=== PATIENT | female | born 1955 | race American Indian/Alaskan Native ===

== ENCOUNTER 2021-06-24 11:04 | Emergency (ER) | payer SELFPAY ==
[2021-06-24 11:15] VITALS: BP 171/84
--- NOTE | 2021-06-24 12:00 | Emergency Department Report ---
ED General Adult HPI - General Chief complaint: Upper Respiratory Infection Stated complaint: pain in ear and head throat pain Time Seen by Provider: 06/24/21 11:16 Source: patient Mode of arrival: Ambulatory Limitations: No Limitations - History of Present Illness Initial comments: 65-year-old -H[place]ian female patient with history of diabetes presents with complaints of left-sided ear and facial pain x2 weeks worsening over the past few days. She denies any fever/chills/sweats. She states she is using Flonase without improvement in her symptoms. No changes in hearing or drainage from the ear per patient, throat pain, cough, chest pain, or nausea/vomiting. She also denies any loss of taste or smell. She rates her current pain is 8/10 in severity. - Related Data Previous Rx's Medication Instructions Recorded Last Taken Type Amoxicillin/Potassium Clav 1 each PO BID 7 Days #14 tablet 06/24/21 Unknown Rx [Augmentin 875-125 Tablet] Naproxen 500 mg PO BID PRN #14 tablet 06/24/21 Unknown Rx ED Review of Systems ROS: Stated complaint: pain in ear and head throat pain Other details as noted in HPI Constitutional: denies: chills, fever, malaise ENT: ear pain. denies: throat pain, dental pain Respiratory: denies: cough, shortness of breath Cardiovascular: denies: chest pain Hematological/Lymphatic: denies: swollen glands ED Past Medical Hx - Past Medical History Previous Medical History?: No - Surgical History Past Surgical History?: No - Medications Home Medications: Home Medications Medication Instructions Recorded Confirmed Last Taken Type Amoxicillin/Potassium Clav 1 each PO BID 7 Days #14 tablet 06/24/21 Unknown Rx [Augmentin 875-125 Tablet] Naproxen 500 mg PO BID PRN #14 tablet 06/24/21 Unknown Rx ED Physical Exam - General Limitations: No Limitations General appearance: alert, in no apparent distress - Head Head exam: Present: atraumatic, normocephalic - Eye Eye exam: Present: normal appearance - ENT ENT exam: Present: normal orophraynx, TM's normal bilaterally, other (Significant tenderness to palpation noted to the left maxillary and left ethmoid sinuses without overlying swelling or erythema; bilateral turbinate erythema and swelling noted) - Neck Neck exam: Present: normal inspection, full ROM - Respiratory Respiratory exam: Absent: respiratory distress - Cardiovascular Cardiovascular Exam: Present: regular rate - Neurological Exam Neurological exam: Present: alert, oriented X3 - Psychiatric Psychiatric exam: Present: normal affect, normal mood - Skin Skin exam: Present: warm, dry, intact, normal color. Absent: rash ED Course Vital Signs 06/24/21 11:12 Temperature 98.4 F Pulse Rate 99 H Respiratory 18 Rate Blood Pressure 171/84 O2 Sat by Pulse 100 Oximetry ED Medical Decision Making - Medical Decision Making 65-year-old -H[place]ian female patient with history of diabetes presents with complaints of left-sided ear and facial pain x2 weeks worsening over the past few days. She denies any fever/chills/sweats. She states she is using Flonase without improvement in her symptoms. No changes in hearing or drainage from the ear per patient, throat pain, cough, chest pain, or nausea/vomiting. She also denies any loss of taste or smell. She rates her current pain is 8/10 in severity. Patient has tenderness to palpation of the maxillary and ethmoid sinuses on exam. Given duration of symptoms with worsening of her symptoms over the past few days, will treat for acute bacterial sinusitis with Augmentin. Recommend follow-up with PCP in 3 to 5 days. Discussed in detail signs and symptoms that should prompt immediate return to the ED with patient who verbalizes understanding. She is otherwise well-appearing, her vitals are within normal limits, she is stable for discharge home. Critical care attestation.: If time is entered above; I have spent that time in minutes in the direct care of this critically ill patient, excluding procedure time. ED Disposition Clinical Impression: Acute bacterial sinusitis Disposition: HOME / SELF CARE / HOMELESS Is pt being admited?: No Condition: Stable Instructions: Sinusitis, Adult, [id number] Prescriptions: Amoxicillin/Potassium Clav [Augmentin 875-125 Tablet] 1 each PO BID 7 Days #14 tablet Naproxen 500 mg PO BID PRN #14 tablet PRN Reason: pain Referrals: PRIMARY CARE, [Referring] - 3-5 Days
== END 2021-06-24 14:26 | disposition home or self-care (01) ==
LOC: ED 11:04
DX: J01.90 Acute sinusitis, unspecified (principal); B96.89 Other specified bacterial agents as the cause of diseases classified elsewhere; H92.02 Otalgia, left ear
CPT/HCPCS: 99281

== ENCOUNTER 2021-09-04 07:23 | Emergency (ER) | payer MEDICAID ==
[2021-09-04 08:39] VITALS: BP 182/89
[2021-09-04] MEDS ORDERED: SUMAtriptan SUCCINATE 6 MG/0.5 ML INJ SUB-Q ONE (10:43)
[2021-09-04] MEDS ORDERED: SODIUM CHLORIDE 0.9% 1000 ML 1,000 ML IV ONE (10:43)
[2021-09-04] MEDS ORDERED: METOCLOPRAMIDE 10 MG/2 ML INJ IV ONE (10:43)
--- NOTE | 2021-09-04 10:44 | Emergency Department Report ---
ED Headache HPI - General Chief Complaint: Headache Stated Complaint: FEET PAIN,HEADACHE Time Seen by Provider: 09/04/21 10:08 Source: patient Exam Limitations: no limitations - History of Present Illness Initial Comments: 65-year-old -Romanian female with a history of hypertension, diabetes and hyperlipidemia presents to the ER today with complaints of a headache. Patient reports a global headache including pain behind both of her eyes for the past couple days. He states has been a constant pain. She states that feels like when she had a sinus infection in the past but also she has a history of migraines and feels similar to migraines. Patient states she has been having rhinorrhea and nasal congestion and mild cough. She denies any ill contacts or recent travel. She has received her COVID-19 vaccine. Patient states that she used to suffer from migraines long time ago, but eventually got better and stopped needing injections for them. She has not had a migraine in a while up until her headache started couple days ago. She denies any head injury. She states that nothing has been helping including [id number] medications. She reports photophobia and nausea. She denies any fever, chills, neck pain, focal weakness, paresthesias, or any additional symptoms at this time. Quality: moderate Head Injury Location: global Allergies/Adverse Reactions: Allergies lisinopril Allergy (Verified 09/04/21 08:39) Unknown Home Medications: Ambulatory Orders Amoxicillin/Potassium Clav [Augmentin 875-125 Tablet] 1 each PO BID 7 Days #14 tablet 06/24/21 Naproxen 500 mg PO BID PRN #14 tablet 06/24/21 Butalb/Acetamin/Caff 50-325-40 [Fioricet 50-325-40] 1 tab PO Q6HR PRN #12 tab 09/04/21 Loratadine [Claritin] 10 mg PO DAILY #30 tab 09/04/21 Mometasone Furoate [Nasonex] 1 spray NS Q12HR #1 bottle 09/04/21 Ondansetron [Zofran Odt] 4 mg PO Q8HR #15 tab.rapdis 09/04/21 ED Review of Systems ROS: Stated complaint: FEET PAIN,HEADACHE Other details as noted in HPI Constitutional: denies: chills, fever Eyes: denies: eye pain, eye discharge, vision change ENT: congestion, other (rhinorrhea ). denies: ear pain, throat pain, dental pain, hearing loss, epistaxis Respiratory: cough. denies: shortness of breath, SOB with exertion, SOB at rest, wheezing Cardiovascular: denies: chest pain, palpitations, dyspnea on exertion, edema, syncope, paroxysmal nocturnal dyspnea Gastrointestinal: denies: abdominal pain, nausea, diarrhea, constipation, hematemesis, melena, hematochezia Genitourinary: denies: urgency, dysuria, frequency, hematuria, discharge, abnormal menses, dyspareunia Musculoskeletal: denies: back pain, joint swelling, arthralgia Skin: denies: rash, lesions, change in color, change in hair/nails, pruritus Neurological: headache. denies: numbness, paresthesias, confusion, abnormal gait, vertigo, other Psychiatric: denies: anxiety, depression, auditory hallucinations, visual hallucinations, homicidal thoughts, suicidal thoughts Hematological/Lymphatic: denies: easy bleeding, easy bruising ED Past Medical Hx - Past Medical History Previous Medical History?: Yes Hx Hypertension: Yes Hx Diabetes: Yes - Surgical History Past Surgical History?: No - Medications Home Medications: Home Medications Medication Instructions Recorded Confirmed Last Taken Type Amoxicillin/Potassium Clav 1 each PO BID 7 Days #14 tablet 06/24/21 Unknown Rx [Augmentin 875-125 Tablet] Naproxen 500 mg PO BID PRN #14 tablet 06/24/21 Unknown Rx Butalb/Acetamin/Caff 50-325-40 1 tab PO Q6HR PRN #12 tab 09/04/21 Unknown Rx [Fioricet 50-325-40] Loratadine [Claritin] 10 mg PO DAILY #30 tab 09/04/21 Unknown Rx Mometasone Furoate [Nasonex] 1 spray NS Q12HR #1 bottle 09/04/21 Unknown Rx Ondansetron [Zofran Odt] 4 mg PO Q8HR #15 tab.rapdis 09/04/21 Unknown Rx ED Physical Exam - General Limitations: No Limitations General appearance: alert, in no apparent distress - Head Head exam: Present: atraumatic, normocephalic, normal inspection - Eye Eye exam: Present: normal appearance, PERRL, EOMI - ENT ENT exam: Present: normal exam, mucous membranes dry, TM's normal bilaterally, normal external ear exam, other (+ maxillary and frontal sinus ttp ) - Neck Neck exam: Present: normal inspection, full ROM. Absent: meningismus - Respiratory Respiratory exam: Present: normal lung sounds bilaterally. Absent: respiratory distress, wheezes, rales, rhonchi - Cardiovascular Cardiovascular Exam: Present: regular rate, normal rhythm, normal heart sounds - GI/Abdominal GI/Abdominal exam: Present: soft. Absent: distended, tenderness, guarding, rebound - Neurological Exam Neurological exam: Present: alert, oriented X3, CN II-XII intact, normal gait - Psychiatric Psychiatric exam: Present: normal affect, normal mood - Skin Skin exam: Present: intact ED Course Vital Signs 09/04/21 08:35 Temperature 98.3 F Pulse Rate 101 H Respiratory 16 Rate Blood Pressure 182/89 [Left] O2 Sat by Pulse 100 Oximetry ED Medical Decision Making - Radiology Data Radiology results: report reviewed Patient: AVI MATTHEWS MR#: [id number] : 1955 Acct:[id number] Age/Sex: 65 / F ADM Date: 09/04/21 Loc: ED Attending Dr: Ordering Physician: DEBORAH LOPEZ Date of Service: 09/04/21 Procedure(s): CT head/brain wo con Accession Number(s): [id number] cc: DEBORAH LOPEZ CT BRAIN: 09/04/2021 INDICATION / CLINICAL INFORMATION: severe NUNN. COMPARISON: None available. FINDINGS: BRAIN/INTRACRANIAL STRUCTURES: Unenhanced CT images of the brain demonstrate no evidence of acute abnormality. Ventricles and sulci are within normal limits of size and shape for a patient of this age. There is no evidence of hemorrhage or mass. There are no abnormal extra-axial fluid collections. Atherosclerotic vascular calcifications are present in the distal internal carotid arteries and vertebral arteries. EXTRACRANIAL STRUCTURES: Unremarkable. IMPRESSION: No acute abnormality. All CT scans at this location are performed using dose reduction to ALARA by means of automated exposure control. Signer Name: Estuardo Claudio MD Signed: 09/04/2021 11:23 AM Workstation Name: [id number] Transcribed By: AO Dictated By: Estuardo Claudio MD Electronically Authenticated By: Estuardo Claudio MD Signed Date/Time: 09/04/21 112 DD/ 1123 TD/TT: - Medical Decision Making CT head shows nothing acute. Fingerstick blood sugar was 242. Patient reports feeling better after IV fluids and meds. She is actually anxi ous and ready to go as she has to go home and take care of her current children. Patient currently awake alert oriented x3. She is neurologically intact with a normal gait. She is mentally stable. She is not toxic, and she is not ill- appearing. She has no evidence of meningeal signs on exam, history and physical today does not suggest acute meningitis, TIA/CVA, temporal arteritis, sepsis or any other significant pathology warranting additional testing, continued ED treatment, admission, or specialist consult at this time. Discussed CT results with patient. Symptoms could be related to her migraines and also viral sinusitis. Discussed suspected diagnosis and treatment plan with patient. She expressed onset of all instructions and agree with plan. Patient was stable at time of discharge Critical care attestation.: If time is entered above; I have spent that time in minutes in the direct care of this critically ill patient, excluding procedure time. ED Disposition Clinical Impression: Migraine, Viral sinusitis Disposition: HOME / SELF CARE / HOMELESS Is pt being admited?: No Does the pt Need Aspirin: No Condition: Stable Instructions: Migraine Headache, [id number], Sinusitis, Adult, [id number] Additional Instructions: I recommend taking the Fioricet and the Zofran as prescribed to help your headache. Use the Nasonex, and take the Claritin to help your URI symptoms. Follow-up with your primary care doctor this week. Return to the ER if your symptoms worsens in any way Prescriptions: Loratadine [Claritin] 10 mg PO DAILY #30 tab Butalb/Acetamin/Caff 50-325-40 [Fioricet 50-325-40] 1 tab PO Q6HR PRN #12 tab PRN Reason: Headache Mometasone Furoate [Nasonex] 1 spray NS Q12HR #1 bottle Ondansetron [Zofran Odt] 4 mg PO Q8HR #15 tab.nii Referrals: HARMONY FIERRO SR, MD [Primary Care Provider] - 3-5 Days Time of Disposition: 12:59
--- NOTE | 2021-09-04 11:28 | Cat Scan Report ---
CT BRAIN: 09/04/2021 INDICATION / CLINICAL INFORMATION: severe NUNN. COMPARISON: None available. FINDINGS: BRAIN/INTRACRANIAL STRUCTURES: Unenhanced CT images of the brain demonstrate no evidence of acute abn ormality. Ventricles and sulci are within normal limits of size and shape for a patient of this age. There is no evidence of hemorrhage or mass. There are no abnormal extra-axial fluid collections. Atherosclerotic vascular calcifications are present in the distal internal carotid arteries and verte bral arteries. EXTRACRANIAL STRUCTURES: Unremarkable. IMPRESSION: No acute abnormality. All CT scans at this location are performed using dose reduction to ALARA by means of automated expos ure control. Signer Name: Estuardo Claudio MD Signed: 09/04/2021 11:23 AM Workstation Name: [id number]
== END 2021-09-04 13:08 | disposition home or self-care (01) ==
LOC: ED 07:23
DX: G43.909 Migraine, unspecified, not intractable, without status migrainosus (principal); J32.8 Other chronic sinusitis; I10 Essential (primary) hypertension; E11.9 Type 2 diabetes mellitus without complications
CPT/HCPCS: 70450; 82962; 96361; 96372; 96374; 99284; J2765; J7030; 99283; J3490; Q0162; J3030

== ENCOUNTER 2021-09-20 20:18 | Emergency (ER) | payer MEDICAID ==
[2021-09-20] MEDS ORDERED: diphenhydrAMINE 25 MG CAP PO ONE (23:54)
[2021-09-20] MEDS ORDERED: cephALEXin 500 MG CAP PO ONE (23:54)
[2021-09-20] MEDS ORDERED: FAMOTIDINE 20 MG TAB PO ONE (23:54)
--- NOTE | 2021-09-21 00:02 | Emergency Department Report ---
- General Chief complaint: Skin Rash Stated complaint: FACE RASH, SWOLLEN THROAT X 2 DAYS Time Seen by Provider: 09/20/21 23:54 Source: patient Mode of arrival: Ambulatory Limitations: No Limitations - History of Present Illness Initial comments: Patient is a 65-year-old female presents emergency room with complaints of a possible allergic reaction that began a couple days ago. She states that it first began with a rash to the face that was itching and burning. She states yesterday then she noticed some swelling underneath the chin. She states that she is also been having crusting and drainage from the chin. She denies any difficulty swallowing, difficulty breathing, fever, vomiting. She denies any new soaps, lotions, detergents, medications, anything new she was putting on the face, any recent antibiotics. Allergy to lisinopril. - Related Data Previous Rx's Medication Instructions Recorded Last Taken Type Amoxicillin/Potassium Clav 1 each PO BID 7 Days #14 tablet 06/24/21 Unknown Rx [Augmentin 875-125 Tablet] Naproxen 500 mg PO BID PRN #14 tablet 06/24/21 Unknown Rx Butalb/Acetamin/Caff 50-325-40 1 tab PO Q6HR PRN #12 tab 09/04/21 Unknown Rx [Fioricet 50-325-40] Loratadine [Claritin] 10 mg PO DAILY #30 tab 09/04/21 Unknown Rx Mometasone Furoate [Nasonex] 1 spray NS Q12HR #1 bottle 09/04/21 Unknown Rx Ondansetron [Zofran Odt] 4 mg PO Q8HR #15 tab.rapdis 09/04/21 Unknown Rx Famotidine [Pepcid] 40 mg PO QHS #10 tab 09/21/21 Unknown Rx Loratadine 10 mg PO DAILY #10 tab 09/21/21 Unknown Rx Mupirocin [Bactroban 2% OINT] 1 applic TP TID #1 tube 09/21/21 Unknown Rx cephALEXin [Keflex] 500 mg PO QID 7 Days #28 cap 09/21/21 Unknown Rx diphenhydrAMINE [Benadryl CAP] 25 mg PO Q8HR PRN #20 capsule 09/21/21 Unknown Rx Allergies Allergy/AdvReac Type Severity Reaction Status Date / Time lisinopril Allergy Unknown Verified 09/04/21 08:39 Abscess Boil HPI - HPI Chief Complaint: Skin Rash Stated Complaint: FACE RASH, SWOLLEN THROAT X 2 DAYS Time Seen by Provider: 09/20/21 23:54 Home Medications: Previous Rx's Medication Instructions Recorded Last Taken Type Amoxicillin/Potassium Clav 1 each PO BID 7 Days #14 tablet 06/24/21 Unknown Rx [Augmentin 875-125 Tablet] Naproxen 500 mg PO BID PRN #14 tablet 06/24/21 Unknown Rx Butalb/Acetamin/Caff 50-325-40 1 tab PO Q6HR PRN #12 tab 09/04/21 Unknown Rx [Fioricet 50-325-40] Loratadine [Claritin] 10 mg PO DAILY #30 tab 09/04/21 Unknown Rx Mometasone Furoate [Nasonex] 1 spray NS Q12HR #1 bottle 09/04/21 Unknown Rx Ondansetron [Zofran Odt] 4 mg PO Q8HR #15 tab.rapdis 09/04/21 Unknown Rx Famotidine [Pepcid] 40 mg PO QHS #10 tab 09/21/21 Unknown Rx Loratadine 10 mg PO DAILY #10 tab 09/21/21 Unknown Rx Mupirocin [Bactroban 2% OINT] 1 applic TP TID #1 tube 09/21/21 Unknown Rx cephALEXin [Keflex] 500 mg PO QID 7 Days #28 cap 09/21/21 Unknown Rx diphenhydrAMINE [Benadryl CAP] 25 mg PO Q8HR PRN #20 capsule 09/21/21 Unknown Rx Allergies/Adverse Reactions: Allergies Allergy/AdvReac Type Severity Reaction Status Date / Time lisinopril Allergy Unknown Verified 09/04/21 08:39 ED Review of Systems ROS: Stated complaint: FACE RASH, SWOLLEN THROAT X 2 DAYS Other details as noted in HPI Comment: All other systems reviewed and negative ED Past Medical Hx - Past Medical History Previous Medical History?: Yes Hx Hypertension: Yes Hx Diabetes: Yes - Surgical History Past Surgical History?: No - Medications Home Medications: Home Medications Medication Instructions Recorded Confirmed Last Taken Type Amoxicillin/Potassium Clav 1 each PO BID 7 Days #14 tablet 06/24/21 Unknown Rx [Augmentin 875-125 Tablet] Naproxen 500 mg PO BID PRN #14 tablet 06/24/21 Unknown Rx Butalb/Acetamin/Caff 50-325-40 1 tab PO Q6HR PRN #12 tab 09/04/21 Unknown Rx [Fioricet 50-325-40] Loratadine [Claritin] 10 mg PO DAILY #30 tab 09/04/21 Unknown Rx Mometasone Furoate [Nasonex] 1 spray NS Q12HR #1 bottle 09/04/21 Unknown Rx Ondansetron [Zofran Odt] 4 mg PO Q8HR #15 tab.rapdis 09/04/21 Unknown Rx Famotidine [Pepcid] 40 mg PO QHS #10 tab 09/21/21 Unknown Rx Loratadine 10 mg PO DAILY #10 tab 09/21/21 Unknown Rx Mupirocin [Bactroban 2% OINT] 1 applic TP TID #1 tube 09/21/21 Unknown Rx cephALEXin [Keflex] 500 mg PO QID 7 Days #28 cap 09/21/21 Unknown Rx diphenhydrAMINE [Benadryl CAP] 25 mg PO Q8HR PRN #20 capsule 09/21/21 Unknown Rx ED Physical Exam - General Limitations: No Limitations General appearance: alert, in no apparent distress - Head Head exam: Present: other (urticaria present to the face, mild edema and erythema, there is honey colored crusting to the chin) - ENT ENT exam: Present: normal orophraynx, mucous membranes moist - Respiratory Respiratory exam: Absent: respiratory distress, accessory muscle use - Neurological Exam Neurological exam: Present: alert, oriented X3 - Psychiatric Psychiatric exam: Present: normal affect, normal mood - Skin Skin exam: Present: warm ED Course Vital Signs 09/20/21 09/21/21 21:28 00:40 Temperature 98.2 F 98.3 F Pulse Rate 109 H 86 Respiratory 18 17 Rate Blood Pressure 173/93 Blood Pressure 174/76 [Right] O2 Sat by Pulse 95 99 Oximetry ED Medical Decision Making - Lab Data Vital Signs 09/20/21 09/21/21 21:28 00:40 Temperature 98.2 F 98.3 F Pulse Rate 109 H 86 Respiratory 18 17 Rate Blood Pressure 173/93 Blood Pressure 174/76 [Right] O2 Sat by Pulse 95 99 Oximetry - Medical Decision Making Patient is a 65-year-old female presents emergency room with complaints of a po ssible allergic reaction that began a couple days ago. She states that it first began with a rash to the face that was itching and burning. She states yesterday then she noticed some swelling underneath the chin. She states that she is also been having crusting and drainage from the chin. She denies any difficulty swallowing, difficulty breathing, fever, vomiting. She denies any new soaps, lotions, detergents, medications, anything new she was putting on the face, any recent antibiotics. Allergy to lisinopril. Initial vitals with elevated heart rate which improved upon repeat to normal. On exam:urticaria present to the face, mild edema and erythema, there is honey colored crusting to the chin. No signs of anaphylaxis or airway compromise. Examination appears consistent with allergic reaction versus urticaria and now appears to have secondarily impetigo. Patient states that she has a history of diabetes and reports that it is not very well controlled and states that her sugars usually run in the 200s. Given her history will avoid steroids. Patient given prescription for medications. Advised patient Please use medication as prescribed. Follow-up with your primary care doctor for reexamination. Return to emergency room for any new or worse symptoms. Critical care attestation.: If time is entered above; I have spent that time in minutes in the direct care of this critically ill patient, excluding procedure time. ED Disposition Clinical Impression: Impetigo Allergic reaction Qualifiers: Encounter type: initial encounter Qualified Code(s): T78.40XA - Allergy, unspecified, initial encounter Disposition: HOME / SELF CARE / HOMELESS Is pt being admited?: No Does the pt Need Aspirin: No Condition: Stable Instructions: Allergies, Adult, Dqjy-ne-Xljy, Impetigo, Adult Additional Instructions: Please use medication as prescribed. Follow-up with your primary care doctor for reexamination. Return to emergency room for any new or worse symptoms. Prescriptions: Famotidine [Pepcid] 40 mg PO QHS #10 tab Mupirocin [Bactroban 2% OINT] 1 applic TP TID #1 tube diphenhydrAMINE [Benadryl CAP] 25 mg PO Q8HR PRN #20 capsule PRN Reason: itching/rash cephALEXin [Keflex] 500 mg PO QID 7 Days #28 cap Loratadine 10 mg PO DAILY #10 tab Referrals: your, primary care doctor [Other] - 2-3 Days Time of Disposition: 00:00 Print Language: TAJIK
[2021-09-21 00:41] VITALS: BP 174/76
== END 2021-09-21 00:40 | disposition home or self-care (01) ==
LOC: ED 20:18
DX: L01.00 Impetigo, unspecified (principal); T78.40XA Allergy, unspecified, initial encounter; X58.XXXA Exposure to other specified factors, initial encounter; I10 Essential (primary) hypertension; E11.9 Type 2 diabetes mellitus without complications; Z91.09 Other allergy status, other than to drugs and biological substances
CPT/HCPCS: 99282

== ENCOUNTER 2021-10-24 07:15 | Emergency (ER) | payer MEDICAID ==
--- NOTE | 2021-10-24 08:16 | Emergency Department Report ---
ED Headache HPI - General Chief Complaint: Headache Stated Complaint: HEADACHE Time Seen by Provider: 10/24/21 08:16 Source: patient, old records Exam Limitations: no limitations - History of Present Illness Initial Comments: 65-year-old female with a past medical history of diabetes, hypertension, and migraine presents to the ER today with complaints of a headache. Patient states that she has had a diffuse headache for the past 2 weeks. She states there is an intermittent headache. She reports associated intermittent nausea but no vomiting. She denies any recent head injury. She states that the headache is worse with light. She has been taking Excedrin migraine without much relief of the headache. Patient states that the headache feels similar to her typical migraines. She also reports that she has been under lots of stress lately because she is moving. She denies any neck pain, fever, chills, speech changes, vision changes, focal deficits, chest pain, shortness of breath or any additional symptoms. Patient blood pressure was noted to be significantly elevated at triage. She states that her primary care doctor recently switch her to HCTZ 25 mg which she has been taking every day and she did take a dose this morning. She states that she had routine blood work with her primary care doctor earlier this month and it was normal. Patient was also seen here back in August 2021 for similar headache and had a negative head CT at the time. Timing/Duration: other (2 weeks ) Quality: moderate, severe Head Injury Location: global Allergies/Adverse Reactions: Allergies lisinopril Allergy (Verified 09/04/21 08:39) Unknown Home Medications: Ambulatory Orders Butalb/Acetamin/Caff 50-325-40 [Fioricet 50-325-40] 1 tab PO Q6HR PRN #12 tab 10/24/21 Ondansetron [Zofran Odt] 4 mg PO Q8HR #15 tab.rapdis 10/24/21 amLODIPine 5 mg PO DAILY #30 tab 10/24/21 ED Review of Systems ROS: Stated complaint: HEADACHE Other details as noted in HPI Comment: All other systems reviewed and negative Constitutional: denies: chills, fever Eyes: denies: eye pain, eye discharge, vision change ENT: denies: ear pain, throat pain Respiratory: denies: cough, shortness of breath, wheezing Cardiovascular: denies: chest pain, palpitations Gastrointestinal: nausea. denies: abdominal pain, diarrhea, constipation, hematemesis, melena, hematochezia Genitourinary: denies: urgency, dysuria, frequency, hematuria, discharge, abnormal menses, dyspareunia Musculoskeletal: denies: joint swelling, arthralgia, myalgia Skin: denies: rash, lesions, change in color, change in hair/nails, pruritus Neurological: headache. denies: weakness, numbness, paresthesias, confusion, abnormal gait, vertigo Psychiatric: denies: anxiety, depression, auditory hallucinations, visual hallucinations, homicidal thoughts, suicidal thoughts Hematological/Lymphatic: denies: easy bleeding, easy bruising, swollen glands ED Past Medical Hx - Past Medical History Previous Medical History?: Yes Hx Hypertension: Yes Hx Diabetes: Yes - Surgical History Past Surgical History?: No - Medications Home Medications: Home Medications Medication Instructions Recorded Confirmed Last Taken Type Butalb/Acetamin/Caff 50-325-40 1 tab PO Q6HR PRN #12 tab 10/24/21 Unknown Rx [Fioricet 50-325-40] Ondansetron [Zofran Odt] 4 mg PO Q8HR #15 tab.rapdis 10/24/21 Unknown Rx amLODIPine 5 mg PO DAILY #30 tab 10/24/21 Unknown Rx ED Physical Exam - General Limitations: No Limitations General appearance: alert, in distress (Mild secondary to pain) - Head Head exam: Present: atraumatic, normocephalic, normal inspection - Eye Eye exam: Present: normal appearance, PERRL, EOMI Pupils: Present: normal accommodation - Neck Neck exam: Present: normal inspection, full ROM. Absent: meningismus - Respiratory Respiratory exam: Present: normal lung sounds bilaterally. Absent: respiratory distress, wheezes, rales, rhonchi, stridor - Cardiovascular Cardiovascular Exam: Present: regular rate, normal rhythm, normal heart sounds - Back Exam Back exam: Present: full ROM - Neurological Exam Neurological exam: Present: alert, oriented X3, CN II-XII intact, normal gait. Absent: motor sensory deficit - Psychiatric Psychiatric exam: Present: normal affect, normal mood - Skin Skin exam: Present: intact ED Course Vital Signs 10/24/21 10/24/21 08:01 09:31 Temperature 98 F Pulse Rate 103 H 77 Respiratory 16 Rate Blood Pressure 228/112 [Left] Blood Pressure 154/74 [Right] O2 Sat by Pulse 99 Oximetry ED Medical Decision Making - Medical Decision Making Patient NUNN better after meds. BP improving after PO clonidine. Reevaluation shows the patient is neurologically intact with a normal gait. She is awake alert and oriented x3. No meningeal signs on exam.The history, exam, and the patient's current condition does not suggest meningitis, stroke, sepsis, subarachnoid hemorrhage, intracranial bleeding, encephalitis, temporal arteritis or other significant pathology to warrant further testing, continued ED treatment, admission, neurological consultation or other specialist evaluation at this point. Patient reports that she was on amlodipine in the past and that seemed to control her blood pressure better until restarted on a low-dose amlodipine but she is to continue the HCTZ and follow-up with her primary care doctor. She also be given medication for headache. Patient understands to return to the ER if worse. Patient stable at time of discharge. Critical care attestation.: If time is entered above; I have spent that time in minutes in the direct care of this critically ill patient, excluding procedure time. ED Disposition Clinical Impression: Migraine headache, Uncontrolled hypertension Disposition: HOME / SELF CARE / HOMELESS Is pt being admited?: No Does the pt Need Aspirin: No Condition: Stable Instructions: Migraine Headache, [id number], Managing Your Hypertension, Hyp ertension, Adult, Hypertension (ED) Additional Instructions: I recommend continuing the HCTZ and start the amlodipine. Take the fiorcet and zofran for headache/nausea. Follow-up with your primary care doctor, or you can follow-up with one of the primary care doctor listed on your discharge instructions. Return to the ER if your symptoms changes or worsens in any way. Prescriptions: amLODIPine 5 mg PO DAILY #30 tab Butalb/Acetamin/Caff 50-325-40 [Fioricet 50-325-40] 1 tab PO Q6HR PRN #12 tab PRN Reason: Headache Ondansetron [Zofran Odt] 4 mg PO Q8HR #15 tab.rapdis Referrals: ERNST PELAEZ MD [Primary Care Provider] - 3-5 Days NGHIA STANTON MD [Staff Physician] - 3-5 Days [facility] [Provider Group] - 3-5 Days Time of Disposition: :32
[2021-10-24] MEDS ORDERED: KETOROLAC 30 MG/1 ML INJ IM ONE (08:17)
[2021-10-24] MEDS ORDERED: METOCLOPRAMIDE 10 MG TAB PO ONE (08:17)
[2021-10-24] MEDS ORDERED: BUTALB/ACETAMINOPHEN/CAFFEINE TAB PO ONE (08:17)
[2021-10-24] MEDS ORDERED: cloNIDine 0.1 MG TAB PO ONE (08:19)
[2021-10-24 09:32] VITALS: BP 154/74
== END 2021-10-24 09:45 | disposition home or self-care (01) ==
LOC: ED 07:15
DX: G43.909 Migraine, unspecified, not intractable, without status migrainosus (principal); I10 Essential (primary) hypertension
CPT/HCPCS: 96372; 99282; J1885

== ENCOUNTER 2021-10-28 15:21 | Emergency (ER) | payer MEDICAID ==
[2021-10-28] MEDS ORDERED: ACETAMINOPHEN 325 MG TAB PO ONE (17:49)
[2021-10-28] MEDS ORDERED: diphenhydrAMINE 50 MG/ML VIAL IV ONE (17:49)
[2021-10-28] MEDS ORDERED: MORPHINE 4 MG/1 ML INJ IV ONE (17:49)
[2021-10-28] MEDS ORDERED: METOCLOPRAMIDE 10 MG/2 ML INJ IV ONE (17:49)
[2021-10-28] MEDS ORDERED: dexAMETHasone 4 MG/ML VIAL IV ONE (17:49)
[2021-10-28] MEDS ORDERED: amLODIPine 5 MG TAB PO ONE (17:54)
--- NOTE | 2021-10-28 17:54 | Emergency Department Report ---
ED Headache HPI - General Chief Complaint: Headache Stated Complaint: HYPERTENSION Time Seen by Provider: 10/28/21 17:45 Source: patient, old records Exam Limitations: no limitations - History of Present Illness Initial Comments: Chief complaint: Headache HPI: This is a 65-year-old female with history of hypertension, diabetes mellitus, migraine headache, tobacco dependence who presents with global headache for 2 weeks. Patient has global throbbing headache with nausea, vomiting, photophobia. Patient had CT scan obtained here at this hospital September 04, 2021, no acute abnormality according to electronic medical record. Patient was evaluated for headache on September 04 in October 24. She also states that she has been compliant with her antihypertensive medication. Headache is typical of previous migraine headaches. Timing/Duration: waxing and waning, other (2 weeks) Quality: severe Head Injury Location: global Recent Head Trauma: chronic headaches Modifying Factors: improves with: exposure to light Associated Symptoms: nausea/vomiting Allergies/Adverse Reactions: Allergies lisinopril Allergy (Verified 10/28/21 16:08) Unknown Home Medications: Ambulatory Orders Butalb/Acetamin/Caff 50-325-40 [Fioricet 50-325-40] 1 tab PO Q6HR PRN #12 tab 10/24/21 Ondansetron [Zofran Odt] 4 mg PO Q8HR #15 tab.rapdis 10/24/21 amLODIPine 5 mg PO DAILY #30 tab 10/24/21 amLODIPine 10 mg PO DAILY 90 Days #90 tab 10/28/21 ED Review of Systems ROS: Stated complaint: HYPERTENSION Other details as noted in HPI Comment: All other systems reviewed and negative Constitutional: denies: chills, fever, malaise Respiratory: denies: cough, shortness of breath Cardiovascular: denies: chest pain Gastrointestinal: nausea, vomiting. denies: abdominal pain Neurological: headache ED Past Medical Hx - Past Medical History Previous Medical History?: Yes Hx Hypertension: Yes Hx Diabetes: Yes - Surgical History Past Surgical History?: No - Family History Family history: hypertension - Social History Smoking Status: Current Every Day Smoker Substance Use Type: None - Medications Home Medications: Home Medications Medication Instructions Recorded Confirmed Last Taken Type Butalb/Acetamin/Caff 50-325-40 1 tab PO Q6HR PRN #12 tab 10/24/21 Unknown Rx [Fioricet 50-325-40] Ondansetron [Zofran Odt] 4 mg PO Q8HR #15 tab.rapdis 10/24/21 Unknown Rx amLODIPine 5 mg PO DAILY #30 tab 10/24/21 Unknown Rx amLODIPine 10 mg PO DAILY 90 Days #90 tab 10/28/21 Unknown Rx ED Physical Exam - General Limitations: No Limitations General appearance: alert, in no apparent distress - Head Head exam: Present: atraumatic, normocephalic - Eye Eye exam: Present: normal appearance - ENT ENT exam: Present: mucous membranes moist - Neck Neck exam: Present: normal inspection, full ROM. Absent: tenderness, meningismus - Respiratory Respiratory exam: Present: normal lung sounds bilaterally. Absent: respiratory distress, wheezes, rales, rhonchi - Cardiovascular Cardiovascular Exam: Present: regular rate, normal rhythm, normal heart sounds. Absent: systolic murmur, diastolic murmur, rubs, gallop - GI/Abdominal GI/Abdominal exam: Present: soft, normal bowel sounds. Absent: distended, tenderness, guarding, rebound - Extremities Exam Extremities exam: Present: normal inspection - Neurological Exam Neurological exam: Present: alert, oriented X3, normal gait, other (No focal deficits, moves all 4 extremities) - Psychiatric Psychiatric exam: Present: normal affect, normal mood - Skin Skin exam: Present: warm, dry, intact, normal color. Absent: rash ED Course Vital Signs 10/28/21 10/28/21 16:05 18:36 Temperature 98.4 F Pulse Rate 96 H Respiratory 16 Rate Blood Pressure 183/80 Blood Pressure 183/80 [Left] O2 Sat by Pulse 98 Oximetry ED Medical Decision Making - Medical Decision Making 1. Migraine headache: No red flags such as sudden onset, neurological deficit, variation of headache, fever. CT scan obtained in August without acute abnormality. 2. Patient's headache may be a symptom of hypertensive urgency. Patient's systolic blood pressure was greater than 180 mmHg during her 2 previous ED encounters this year. Concern for uncontrolled hypertension. Patient currently takes amlodipine 5 mg daily and hydrochlorothiazide 25 mg daily. This medication regimen is not adequate to control her blood pressure. I have changed her medication regimen to amlodipine 10 mg daily. I felt that an ARB such as valsartan will be appropriate. However patient has history of lisinopril allergy. PCP should monitor ARB use. I have referred her to office manager on-call. Patient received amlodipine labetalol in the emergency department. 3. Tobacco dependence: Strongly recommended smoking cessation.. Critical care attestation.: If time is entered above; I have spent that time in minutes in the direct care of this critically ill patient, excluding procedure time. ED Disposition Clinical Impression: Migraine headache, Hypertensive urgency Disposition: HOME / SELF CARE / HOMELESS Is pt being admited?: No Does the pt Need Aspirin: No Condition: Stable Instructions: Recurrent Migraine Headache, [id number], Managing Your Hypertension Additional Instructions: You have been referred to a office manager for hypertension management. Please follow-up as soon as possible. Prescriptions: amLODIPine 10 mg PO DAILY 90 Days #90 tab Referrals: DR ELIDIA [Other] - 3-5 Days TEDDY MOLINA MD [Staff Physician] - [facility]
--- NOTE | 2021-10-28 22:51 | XRay Report ---
CHEST 1 VIEW INDICATION / CLINICAL INFORMATION: hypertensive crisis. COMPARISON: None available. FINDINGS: SUPPORT DEVICES: None. HEART / MEDIASTINUM: No significant abnormality. LUNGS / PLEURA: No significant pulmonary or pleural abnormality. No pneumothorax. ADDITIONAL FINDINGS: No significant additional findings. IMPRESSION: 1. No acute findings. Signer Name: Valeri Kohli MD Signed: 10/28/2021 10:47 PM Workstation Name: [id number]
[2021-10-28 23:38] VITALS: BP 179/80
[2021-10-28] MEDS ORDERED: VALSARTAN 160MG TAB PO ONE (23:40)
== END 2021-10-28 23:10 | disposition home or self-care (01) ==
LOC: ED 15:21
DX: G43.909 Migraine, unspecified, not intractable, without status migrainosus (principal); I16.0 Hypertensive urgency; F17.200 Nicotine dependence, unspecified, uncomplicated; E11.9 Type 2 diabetes mellitus without complications; Z88.8 Allergy status to other drugs, medicaments and biological substances
CPT/HCPCS: 71045; 96374; 96375; 96376; 99284; J1100; J1200; J2270; J2765; J3490